=== PATIENT | male | born 1940 | race Hispanic/Latino ===

== ENCOUNTER 2020-04-02 16:01 | Inpatient (IN) | payer MEDICARE ==
[~2020-04-02] VITALS: Ht 167.6 cm; Wt 76.1 kg
[2020-04-02 16:54] LABS: BASOPHILS % (AUTO) 0.3 % (0.0-5.0); EOSINOPHILS % (AUTO) 2.6 % (0.0-8.0); HEMATOCRIT 32.6 % (42-54); LYMPHOCYTES % (AUTO) 10.3 % (21.0-51.0); MEAN CORPUSCULAR HEMOGLOBIN 28.1 pg (27.0-33.0); MEAN CORPUSCULAR HGB CONC 33.1 g/dL (32.0-36.0); MEAN CORPUSCULAR VOLUME 84.9 fL (79-99); MONOCYTES % (AUTO) 10.9 % (3.0-13.0); NEUTROPHILS % (AUTO) 75.6 % (40.0-77.0); PLATELET COUNT (AUTO) 156 K/uL (130-400); RED BLOOD CELL COUNT(AUTO) 3.84 MIL/uL (4.50-6.20); RED CELL DISTRIBUTION WIDTH 13.1 % (11.0-15.5); WHITE BLOOD COUNT (AUTO) 7.3 K/uL (4.8-10.8)
[2020-04-02 17:08] LABS: INR 0.93 (0.85-1.15); PROTHROMBIN TIME 10.1 SEC (9.6-11.6)
[2020-04-02 17:09] LABS: ALBUMIN 2.7 g/dL (3.5-5.0); BILIRUBIN,TOTAL 0.8 mg/dL (0.2-1.0); CREATININE 0.7 mg/dL (0.5-1.5); TOTAL PROTEIN, SERUM 6.4 g/dL (6.0-8.3)
[2020-04-02 17:20] LABS: POTASSIUM 2.9 mmol/L (3.5-5.1)
[2020-04-02] MEDS ORDERED: POTASSIUM BICARB/CIT AC 25 MEQ TABLET.EFF ONE (17:56)
[2020-04-02] MEDS ORDERED: GLUCAGON 1MG KIT 1 MG ML IM PRN (19:00)
[2020-04-02] MEDS ORDERED: DEXTROSE 50%-WATER 50 ML DISP.SYRIN IV PRN (19:00)
[2020-04-02 19:13] LABS: HEMOGLOBIN A1C 8.1 % (4.0-6.0)
[2020-04-02] MEDS ORDERED: ACETAMINOPHEN 325 MG TAB PO PRN (19:15)
[2020-04-02] MEDS ORDERED: HYDROCODONE/ACETAMINOPHEN 5/325 MG TAB PO PRN (19:15)
[2020-04-02] MEDS ORDERED: MAGNESIUM 2GM PREMIX 50ML 50 ML IV PRN (19:15)
[2020-04-02] MEDS ORDERED: ONDANSETRON HCL 4 MG/2 ML VIAL IV PRN (19:15)
[2020-04-02] MEDS ORDERED: POTASSIUM CHLORIDE 10% ELIXIR 20 MEQ/15 ML UDCUP PO PRN (19:15)
[2020-04-02] MEDS ORDERED: POTASSIUM CHLORIDE 20MEQ/100ML 100 ML IV PRN (19:15)
[2020-04-02] MEDS ORDERED: POTASSIUM CHLORIDE 20 MEQ ERTAB PO PRN (19:15)
[2020-04-02] MEDS ORDERED: LIDOCAINE HCL-MPF 1% 2ML VIAL IJ PRN (19:15)
[2020-04-02] MEDS: SODIUM CHLORIDE 0.9% 1000ML 1,000 ML IV SCH (19:15)
[2020-04-02] MEDS ORDERED: NITROGLYCERIN 0.4 MG SL TAB SL PRN (19:15)
[2020-04-02 19:52] LABS: CREATINE KINASE, TOTAL 86 U/L (21-232); MYOGLOBIN 50 ng/mL (10-92); TROPONIN I < 0.04 ng/mL (0.00-0.06)
[2020-04-02 20:10] LABS: APPEARANCE,URINE Clear (CLEAR); BILIRUBIN,URINE Small (NEGATIVE); COLOR,URINE Dark Yellow (YELLOW); GLUCOSE, URINE (UA) Negative (NEGATIVE); KETONES,URINE Trace mg/dL (NEGATIVE); LEUKOCYTE ESTERASE ,URINE Trace (NEGATIVE); NITRATE,URINE Negative (NEGATIVE); OCCULT BLOOD,URINE Negative (NEGATIVE); PH,URINE 5.5 (5.0-8.0); PROTEIN,URINE Trace mg/dL (NEGATIVE)
[2020-04-02 20:23] LABS: BACTERIA,URINE Rare /HPF (None Seen); MUCUS,URINE Few LPF (None Seen); RBC,URINE 0-1 /HPF (0-1); SQUAMOUS EPITHELIAL CELL,UR Few /HPF (0-2); WBC,URINE 0-1 /HPF (0-1)
[2020-04-02] MEDS: INSULIN HUMULIN R 100 UNIT/ML 3ML SQ SCH (21:00)
[2020-04-02] MEDS: FAMOTIDINE 20MG TAB 20 MG TAB PO SCH (21:00)
[2020-04-02] MEDS ORDERED: FAMOTIDINE 20MG TAB 20 MG TAB ONE (21:19)
[2020-04-02 21:27] LABS: AMPHET/METH SCREEN,URINE NEGATIVE (NEGATIVE); BARBITURATE SCREEN, URINE NEGATIVE (NEGATIVE); BENZODIAZEPINES SCREEN,URINE NEGATIVE (NEGATIVE); CANNABINOID SCREEN,URINE NEGATIVE (NEGATIVE); COCAINE SCREEN,URINE NEGATIVE (NEGATIVE); OPIATE SCREEN,URINE NEGATIVE (NEGATIVE); PHENCYCLIDINE SCREEN,URINE NEGATIVE (NEGATIVE)
[2020-04-02 21:50] VITALS: BP 150/73
[2020-04-02 22:13] LABS: CREATINE KINASE, TOTAL 71 U/L (21-232); MYOGLOBIN 53 ng/mL (10-92); TROPONIN I < 0.04 ng/mL (0.00-0.06)
[2020-04-02] MEDS ORDERED: ATOR40TA71 PO (22:55)
[2020-04-02] MEDS ORDERED: METF-446 PO (22:55)
[2020-04-02] MEDS ORDERED: LISI-613 PO (22:55)
[2020-04-02] MEDS ORDERED: ICOS1CAP PO (22:55)
[2020-04-02] MEDS ORDERED: PRED5TAB PO (22:55)
[2020-04-02] MEDS ORDERED: OMEP20CA12 PO (22:55)
[2020-04-02] MEDS ORDERED: NAPR375T6 PO (22:55)
[2020-04-02] MEDS ORDERED: TRAM100T40 PO (22:55)
[2020-04-02] MEDS ORDERED: [UNRECOGNIZED DRUG - OTHER] (22:55)
[2020-04-02] MEDS ORDERED: INSU100V37 SQ (22:55)
[2020-04-02] MEDS ORDERED: BUDE10.2 IH (22:55)
[2020-04-02] MEDS ORDERED: TAMS-1 PO (22:55)
[2020-04-02] MEDS: DIPHENHYDRAMINE HCL 25 MG CAPSULE PO PRN (23:00)
[2020-04-02] MEDS: HYDROCODONE/ACETAMINOPHEN 5/325 MG TAB PO PRN (23:02)
[2020-04-02] MEDS: POTASSIUM CHLORIDE 20 MEQ ERTAB PO SCH (23:17)
[2020-04-03 00:09] VITALS: BP 148/61
[2020-04-03 04:21] VITALS: BP 121/62
[2020-04-03 05:21] LABS: BASOPHILS % (AUTO) 0.3 % (0.0-5.0); EOSINOPHILS % (AUTO) 6.7 % (0.0-8.0); HEMATOCRIT 30.5 % (42-54); LYMPHOCYTES % (AUTO) 17.5 % (21.0-51.0); MEAN CORPUSCULAR HEMOGLOBIN 27.8 pg (27.0-33.0); MEAN CORPUSCULAR HGB CONC 32.1 g/dL (32.0-36.0); MEAN CORPUSCULAR VOLUME 86.4 fL (79-99); MONOCYTES % (AUTO) 13.7 % (3.0-13.0); NEUTROPHILS % (AUTO) 61.5 % (40.0-77.0); PLATELET COUNT (AUTO) 168 K/uL (130-400); RED BLOOD CELL COUNT(AUTO) 3.53 MIL/uL (4.50-6.20); RED CELL DISTRIBUTION WIDTH 13.2 % (11.0-15.5); WHITE BLOOD COUNT (AUTO) 5.8 K/uL (4.8-10.8)
[2020-04-03 05:44] LABS: ALANINE AMINOTRANSFERASE 13 U/L (12-78); ALBUMIN 2.4 g/dL (3.5-5.0); ASPARTATE AMINOTRANSFERASE 18 U/L (10-37); BILIRUBIN,TOTAL 0.7 mg/dL (0.2-1.0); CARBON DIOXIDE 31 mmol/L (21-32); CHLORIDE 106 mmol/L (101-111); CREATINE KINASE, TOTAL 58 U/L (21-232); CREATININE 0.7 mg/dL (0.5-1.5); GLOMERULAR FILTR. RATE CALC 115 mL/min (>60); GLUCOSE,RANDOM 86 mg/dL (70-105); MYOGLOBIN 45 ng/mL (10-92); POTASSIUM 3.6 mmol/L (3.5-5.1); SODIUM SERUM 143 mmol/L (136-145); TOTAL PROTEIN, SERUM 5.8 g/dL (6.0-8.3); TROPONIN I < 0.04 ng/mL (0.00-0.06); UREA NITROGEN, BLOOD 17 mg/dL (7-18)
[2020-04-03] MEDS: INSULIN HUMULIN R 100 UNIT/ML 3ML SQ SCH ×4 (07:30→20:42)
[2020-04-03 08:43] VITALS: BP 139/68
[2020-04-03] MEDS ORDERED: ENOXAPARIN SODIUM 30 MG/0.3 ML SQ SCH (09:00)
[2020-04-03] MEDS: SODIUM CHLORIDE 0.9% 1000ML 1,000 ML IV SCH ×2 (10:00→21:55)
[2020-04-03] MEDS: FAMOTIDINE 20MG TAB 20 MG TAB PO SCH ×2 (10:00→20:13)
[2020-04-03] MEDS ORDERED: NON-FORMULARY MEDICATION 1 EACH (Tramadol HCl 100 MG) PO PRN (10:15)
[2020-04-03] MEDS: HYDROCODONE/ACETAMINOPHEN 5/325 MG TAB PO PRN ×2 (13:05→20:42)
[2020-04-03 13:45] VITALS: BP 152/73
[2020-04-03 16:25] VITALS: BP 146/67
[2020-04-03] MEDS: SYMBICORT 160-4.5 MCG INHALER IH SCH (18:00)
[2020-04-03 19:30] VITALS: BP 174/80
[2020-04-03] MEDS: HEPARIN SODIUM 5000UNIT/ML 1ML VIAL SQ SCH (19:30)
[2020-04-03] MEDS: PREDNISONE 5 MG TABLET PO SCH (20:12)
[2020-04-03] MEDS: FISH OIL 1000 MG/CAP PO SCH (20:12)
[2020-04-03] MEDS: ATORVASTATIN CALCIUM 40 MG TABLET PO SCH (20:13)
[2020-04-03] MEDS ORDERED: NON-FORMULARY MEDICATION 1 EACH (Icosapent Ethyl (Vascepa) 1 GM) PO SCH (21:00)
[2020-04-03] MEDS ORDERED: SUB PER P&T FOR ASTHMA OR COPD RECOMMENDATION IH SCH (21:00)
[2020-04-03] MEDS: POTASSIUM CHLORIDE 20 MEQ ERTAB PO SCH (22:30)
[2020-04-03] MEDS: ACETAMINOPHEN 325 MG TAB PO PRN (22:47)
[2020-04-04] VITALS (27 sets, daily range): BP systolic 137–194; BP diastolic 62–88
[2020-04-04] MEDS ORDERED: KETOROLAC TROMETHAMINE 15MG/ML IV SCH (03:45)
[2020-04-04] MEDS ORDERED: KETOROLAC TROMETHAMINE 15MG/ML ONE (03:47)
[2020-04-04] MEDS: SYMBICORT 160-4.5 MCG INHALER IH SCH ×2 (05:40→18:00)
[2020-04-04] MEDS ORDERED: INSULIN DEGLUDEC 70 UNIT SQ SCH (07:30)
[2020-04-04] MEDS: INSULIN DEGLUDEC 70 UNIT SQ SCH (07:30)
[2020-04-04] MEDS: HEPARIN SODIUM 5000UNIT/ML 1ML VIAL SQ SCH (07:30)
[2020-04-04] MEDS: INSULIN HUMULIN R 100 UNIT/ML 3ML SQ SCH ×4 (07:30→21:00)
[2020-04-04] MEDS: FISH OIL 1000 MG/CAP PO SCH ×2 (09:00→21:16)
[2020-04-04] MEDS: TAMSULOSIN HCL 0.4 MG CAP.ER.24H PO SCH (09:00)
[2020-04-04] MEDS: FAMOTIDINE 20MG TAB 20 MG TAB PO SCH ×2 (09:00→21:16)
[2020-04-04] MEDS ORDERED: LISINOPRIL 20 MG TABLET PO SCH (09:00)
[2020-04-04] MEDS: LISINOPRIL 2.5 MG TABLET PO SCH (11:15)
[2020-04-04] MEDS: SODIUM CHLORIDE 0.9% 1000ML 1,000 ML IV SCH ×2 (11:15→14:09)
[2020-04-04] MEDS: PREDNISONE 5 MG TABLET PO SCH ×2 (11:16→21:16)
[2020-04-04] MEDS ORDERED: SUCCINYLCHOLINE 200MG/10ML SYR ONE (12:47)
[2020-04-04] MEDS ORDERED: ROCURONIUM 10MG/1ML SYR 10 MG/ML ML ONE (12:47)
[2020-04-04] MEDS ORDERED: LIDOCAINE PF 2% 5ML ABBOJECT ONE (12:47)
[2020-04-04] MEDS ORDERED: PROPOFOL 10 MG/ML 20ML VIAL IV ONE (12:47)
[2020-04-04] MEDS ORDERED: FENTANYL CITRATE PF 50 MCG/1 ML 2ML VIAL ONE (12:48)
[2020-04-04] MEDS ORDERED: ROPIVACAINE 0.5% 5MG/ML 30ML IJ ONE (12:50)
[2020-04-04] MEDS ORDERED: CEFAZOLIN SODIUM 1 GM VIAL ONE (12:57)
[2020-04-04] MEDS ORDERED: GLYCOPYRROLATE 1 MG/5 ML SYRINGE ONE (14:05)
[2020-04-04] MEDS ORDERED: NEOSTIGMINE 5MG/5ML SYR IV ONE (14:05)
[2020-04-04] MEDS ORDERED: HYDRALAZINE HCL 20 MG/ML VIAL IV PRN (18:30)
[2020-04-04] MEDS ORDERED: LABETALOL 20 MG/4 ML DISP.SYRIN IV PRN (18:30)
[2020-04-04] MEDS: AMLODIPINE BESYLATE 5 MG TAB PO SCH (18:37)
[2020-04-04] MEDS: ATORVASTATIN CALCIUM 40 MG TABLET PO SCH (21:16)
[2020-04-05] MEDS: SODIUM CHLORIDE 0.9% 1000ML 1,000 ML IV SCH (00:35)
[2020-04-05 04:30] VITALS: BP 147/73
[2020-04-05] MEDS: ACETAMINOPHEN 325 MG TAB PO PRN ×3 (05:13→20:19)
[2020-04-05] MEDS: SYMBICORT 160-4.5 MCG INHALER IH SCH ×2 (06:00→18:00)
[2020-04-05 06:52] LABS: BASOPHILS % (AUTO) 0.1 % (0.0-5.0); HEMATOCRIT 32.4 % (42-54); LYMPHOCYTES % (AUTO) 4.9 % (21.0-51.0); MEAN CORPUSCULAR HEMOGLOBIN 27.6 pg (27.0-33.0); MEAN CORPUSCULAR HGB CONC 32.4 g/dL (32.0-36.0); MONOCYTES % (AUTO) 6.3 % (3.0-13.0); NEUTROPHILS % (AUTO) 88.3 % (40.0-77.0); PLATELET COUNT (AUTO) 245 K/uL (130-400); RED BLOOD CELL COUNT(AUTO) 3.81 MIL/uL (4.50-6.20); WHITE BLOOD COUNT (AUTO) 9.2 K/uL (4.8-10.8)
[2020-04-05 07:06] LABS: CREATININE 0.7 mg/dL (0.5-1.5); MAGNESIUM 1.7 mg/dL (1.80-2.40); POTASSIUM 3.9 mmol/L (3.5-5.1)
[2020-04-05] MEDS: INSULIN HUMULIN R 100 UNIT/ML 3ML SQ SCH ×4 (07:30→20:19)
[2020-04-05] MEDS: INSULIN DEGLUDEC 70 UNIT SQ SCH (07:30)
[2020-04-05 08:46] VITALS: BP 156/89
[2020-04-05] MEDS: FAMOTIDINE 20MG TAB 20 MG TAB PO SCH ×2 (09:15→20:18)
[2020-04-05] MEDS: FISH OIL 1000 MG/CAP PO SCH ×2 (09:15→20:18)
[2020-04-05] MEDS: AMLODIPINE BESYLATE 5 MG TAB PO SCH (09:16)
[2020-04-05] MEDS: PREDNISONE 5 MG TABLET PO SCH ×2 (09:16→20:18)
[2020-04-05] MEDS: TAMSULOSIN HCL 0.4 MG CAP.ER.24H PO SCH (09:16)
[2020-04-05] MEDS: LISINOPRIL 2.5 MG TABLET PO SCH (09:16)
[2020-04-05] MEDS: PANTOPRAZOLE SODIUM 40 MG TABLET.DR PO SCH (09:24)
[2020-04-05] MEDS: ENOXAPARIN SODIUM 30 MG/0.3 ML SQ SCH (09:25)
[2020-04-05 11:46] VITALS: BP 111/54
[2020-04-05 18:38] VITALS: BP 127/63
[2020-04-05] MEDS: DIPHENHYDRAMINE HCL 25 MG CAPSULE PO PRN (20:18)
[2020-04-05] MEDS: ATORVASTATIN CALCIUM 40 MG TABLET PO SCH (20:18)
[2020-04-05 23:30] VITALS: BP 139/61
[2020-04-06 03:51] LABS: BASOPHILS % (AUTO) 0.3 % (0.0-5.0); EOSINOPHILS % (AUTO) 0.6 % (0.0-8.0); HEMATOCRIT 28.9 % (42-54); LYMPHOCYTES % (AUTO) 8.9 % (21.0-51.0); MEAN CORPUSCULAR HGB CONC 32.9 g/dL (32.0-36.0); MEAN CORPUSCULAR VOLUME 85.3 fL (79-99); MONOCYTES % (AUTO) 8.3 % (3.0-13.0); NEUTROPHILS % (AUTO) 81.6 % (40.0-77.0); PLATELET COUNT (AUTO) 243 K/uL (130-400); RED BLOOD CELL COUNT(AUTO) 3.39 MIL/uL (4.50-6.20); RED CELL DISTRIBUTION WIDTH 13.2 % (11.0-15.5); WHITE BLOOD COUNT (AUTO) 7.3 K/uL (4.8-10.8)
[2020-04-06 03:59] VITALS: BP 149/80
[2020-04-06 04:02] LABS: CREATININE 0.8 mg/dL (0.5-1.5); POTASSIUM 3.7 mmol/L (3.5-5.1)
[2020-04-06] MEDS: SYMBICORT 160-4.5 MCG INHALER IH SCH ×2 (06:00→18:00)
[2020-04-06] MEDS: INSULIN HUMULIN R 100 UNIT/ML 3ML SQ SCH ×4 (06:14→20:50)
[2020-04-06] MEDS: PANTOPRAZOLE SODIUM 40 MG TABLET.DR PO SCH (06:16)
[2020-04-06] MEDS ORDERED: INSULIN GLARGINE 100 UNITS/ML 10 ML VIAL SQ ONE (07:00)
[2020-04-06 08:03] VITALS: BP 153/75
[2020-04-06] MEDS: LISINOPRIL 2.5 MG TABLET PO SCH (09:10)
[2020-04-06] MEDS: PREDNISONE 5 MG TABLET PO SCH ×2 (09:11→20:44)
[2020-04-06] MEDS: ENOXAPARIN SODIUM 30 MG/0.3 ML SQ SCH (09:11)
[2020-04-06] MEDS: AMLODIPINE BESYLATE 5 MG TAB PO SCH (09:11)
[2020-04-06] MEDS: TAMSULOSIN HCL 0.4 MG CAP.ER.24H PO SCH (09:11)
[2020-04-06] MEDS: FAMOTIDINE 20MG TAB 20 MG TAB PO SCH ×2 (09:11→20:43)
[2020-04-06] MEDS: FISH OIL 1000 MG/CAP PO SCH ×2 (09:11→20:43)
[2020-04-06 11:18] VITALS: BP 141/56
[2020-04-06 16:20] VITALS: BP 140/55
[2020-04-06 19:46] VITALS: BP 141/69
[2020-04-06] MEDS: ATORVASTATIN CALCIUM 40 MG TABLET PO SCH (20:44)
[2020-04-06] MEDS: ACETAMINOPHEN 325 MG TAB PO PRN (20:45)
[2020-04-07] VITALS: BP 112/69
[2020-04-07 03:39] LABS: BASOPHILS % (AUTO) 0.3 % (0.0-5.0); EOSINOPHILS % (AUTO) 2.5 % (0.0-8.0); HEMATOCRIT 28.8 % (42-54); LYMPHOCYTES % (AUTO) 15.2 % (21.0-51.0); MEAN CORPUSCULAR HEMOGLOBIN 27.7 pg (27.0-33.0); MEAN CORPUSCULAR HGB CONC 32.3 g/dL (32.0-36.0); MEAN CORPUSCULAR VOLUME 85.7 fL (79-99); MONOCYTES % (AUTO) 11.6 % (3.0-13.0); NEUTROPHILS % (AUTO) 69.8 % (40.0-77.0); PLATELET COUNT (AUTO) 236 K/uL (130-400); RED BLOOD CELL COUNT(AUTO) 3.36 MIL/uL (4.50-6.20); RED CELL DISTRIBUTION WIDTH 13.5 % (11.0-15.5); WHITE BLOOD COUNT (AUTO) 6.5 K/uL (4.8-10.8)
[2020-04-07 03:58] VITALS: BP 148/63
[2020-04-07 04:03] LABS: CREATININE 0.7 mg/dL (0.5-1.5); POTASSIUM 3.5 mmol/L (3.5-5.1)
[2020-04-07] MEDS: INSULIN HUMULIN R 100 UNIT/ML 3ML SQ SCH ×2 (05:45→12:06)
[2020-04-07] MEDS: SYMBICORT 160-4.5 MCG INHALER IH SCH (05:46)
[2020-04-07] MEDS: PANTOPRAZOLE SODIUM 40 MG TABLET.DR PO SCH (06:46)
[2020-04-07] MEDS ORDERED: INSULIN GLARGINE 100 UNITS/ML 10 ML VIAL SQ SCH ×2 (07:00→08:00)
[2020-04-07 09:02] VITALS: BP 136/64
[2020-04-07] MEDS: PREDNISONE 5 MG TABLET PO SCH (09:23)
[2020-04-07] MEDS: AMLODIPINE BESYLATE 5 MG TAB PO SCH (09:23)
[2020-04-07] MEDS: FISH OIL 1000 MG/CAP PO SCH (09:23)
[2020-04-07] MEDS: FAMOTIDINE 20MG TAB 20 MG TAB PO SCH (09:24)
[2020-04-07] MEDS: TAMSULOSIN HCL 0.4 MG CAP.ER.24H PO SCH (09:24)
[2020-04-07] MEDS: LISINOPRIL 2.5 MG TABLET PO SCH (09:24)
[2020-04-07] MEDS: ENOXAPARIN SODIUM 30 MG/0.3 ML SQ SCH (09:25)
[2020-04-07 13:53] VITALS: BP 132/59
== END 2020-04-07 18:00 | disposition home health service (06) | DRG 481 ==
LOC: EDH 16:01 → EDHIP 18:48 → 3AH 20:10
PROVIDERS: ADMIT Family Medicine; ATTEND Family Medicine
PROC: 0QH636Z Insertion of Intramedullary Internal Fixation Device into Right Upper Femur, Percutaneous Approach (ICD-10-PCS; principal; 2020-04-04 11:50)
DX: S72.141A Displaced intertrochanteric fracture of right femur, initial encounter for closed fracture (principal); E44.1 Mild protein-calorie malnutrition; E87.6 Hypokalemia; Z20.828 Contact with and (suspected) exposure to other viral communicable diseases; I10 Essential (primary) hypertension; E78.5 Hyperlipidemia, unspecified; Z96.649 Presence of unspecified artificial hip joint; C61 Malignant neoplasm of prostate; E11.65 Type 2 diabetes mellitus with hyperglycemia; F03.90 Unspecified dementia, unspecified severity, without behavioral disturbance, psychotic disturbance, mood disturbance, and anxiety; J44.9 Chronic obstructive pulmonary disease, unspecified; M17.12 Unilateral primary osteoarthritis, left knee; M81.0 Age-related osteoporosis without current pathological fracture; W18.30XA Fall on same level, unspecified, initial encounter; Z79.52 Long term (current) use of systemic steroids; Z79.4 Long term (current) use of insulin; Y92.009 Unspecified place in unspecified non-institutional (private) residence as the place of occurrence of the external cause; Y93.89 Activity, other specified; Y99.8 Other external cause status; Z83.3 Family history of diabetes mellitus; Z79.899 Other long term (current) drug therapy
CPT/HCPCS: 36415; 70450; 71045; 73502; 73503; 80048; 80053; 80305; 81001; 82550; 82948; 83036; 83735; 83874; 83880; 84132; 84484; 85025; 85610; 85730; 86850; 86900; 86901; 86923; 87426; 93005; 97039; G0378; J0330; J0690; J1644; J1650; J1815; J1885; J2001; J2704; J2710; J2795; J3010; J3490; J7030; J7512; Q0163; U0003